=== PATIENT | female | born 1980 | race Caucasian/White ===

== ENCOUNTER 2021-01-09 21:26 | Emergency (ER) | payer OTHER ==
[~2021-01-09] VITALS: Ht 162.6 cm; Wt 63.6 kg
[2021-01-09 22:00] VITALS: BP 111/70
[2021-01-09] MEDS ORDERED: ACETAMINOPHEN 500 MG TABLET PO ONE (23:30)
[2021-01-09] MEDS ORDERED: IBUPROFEN 600 MG TABLET PO ONE (23:30)
[2021-01-09] MEDS ORDERED: LIDOCAINE 5% TRANSDERMAL PATCH TD ONE (23:30)
== END 2021-01-10 00:30 | disposition home or self-care (01) ==
LOC: EMS 21:29
DX: M25.511 Pain in right shoulder (principal)
CPT/HCPCS: 99284; 73030-TC; Z7502; Z7610